=== PATIENT | female | born 1945 | race Caucasian/White ===

== ENCOUNTER 2017-02-16 08:06 | Day surgery (SDC) | payer MEDICARE ==
[~2017-02-16] VITALS: Ht 152.4 cm; Wt 70.0 kg
[~2017-02-16 08:06] MED LIST: 0.9% Sodium Chloride 1,000 ML IV PRN; CALC500C PO; CHOL100045 PO; CIPR-198 PO; CITA10TA14 PO; CITA10TA9 PO; ESTR1VAG VG; FENO54TA PO; IBUP400T22 PO; LOSA50TA37 PO; METR500T19 PO; Sodium Chloride LOK Flush 10 mL Syringe IV PRN; TRAM50TA2 PO; fentaNYL-PF 50 mCg/mL 2 mL Inj IVPUSH PRN
[2017-02-16 08:19] VITALS: BP 124/70; PULSE 71; RESP 16; O2SAT 97
--- NOTE | 2017-02-16 08:57 | PCM.ENDEGD ---
EGD Date of Service: Feb 16, 2017 Physician Jose J Kee MD Pre Procedure Diagnosis: Black stools Post Procedure Dx & Findings: Esophageal erosions and Schatzki's ring duodenal erosion duodenal nodule Procedure Esophagogastroduodenoscopy PROCEDURE IN DETAIL: After proper sedation, Olympus video endoscope was inserted into patient's mouth and esophagus was successfully intubated. Scope introduced esophagus. Esophagus showed normal shiny whitish mucosa consistent with squamous cell component. Z line was at 35 cm from the incisors. Redness swelling noted there was also small erosion. Mild superficial scarring noted consistent with shallow Schatzki's. Biopsies obtained of the erosion esophagitis and a Schatzki 's. These are placed in the same bottle. Scope further advanced to the stomach. Stomach showed normal shiny mucosa with normal appearing rugae folds without any ulcer mass erosion. Cardia fundus body antrum pylorus were all visualized. Retroflexion was done. Stomach was easily inflated and deflatable using air. Scope further events to the distal duodenum. Duodenum revealed small superficial erosion in the duodenal bulb. Biopsy of the erosion obtained. Also in the second portion of the duodenum, there was a 7 mm nodule with center showing some whitish material in the center. Biopsies obtained of the nodule. Impression Shallow Schatzki's ring Esophagitis and esophageal erosion Duodenal erosion Nodule of the duodenum Recommendation Prilosec 20 mg once a day Avoid NSAIDs. Presedation Assessment Risks and Benefits Informed consent was obtained from the patient after all risks and benefits including but not limited to drug reaction, infection, pain, bleeding, perforation, as well as alternatives were discussed. Patient monitoring Continuous pulse oximetry, cardiac monitoring, blood pressure monitoring, IV access, and oxygen at 2L per nasal cannula. Periprocedural Fentanyl: Fentanyl 75mcg Incrementally Midazolam: Midazolam 3mg Incrementally Complications There were no periprocedural complications identified. Post Procedure Plan Post Procedure Recommendations 1. Restrict activities today. 2. Resume normal activities in the morning. 3. Resume medications. 4. GERD behavioral modification: - Avoid fatty, acidic, spicy, large meals - Do not lie down after meals - Do not eat or drink anything for at least 2 1/2 hours before going to bed at night - Discontinue tobacco and alcohol - Decrease or avoid caffeine - Avoid chocolate and mints - Decrease weight - Avoid aspirin and non steroidal anti-inflammatory agents (NSAID) such as Aleve, Advil, Mobic, Naproxen, Ibuprofen, etc 5. Add proton pump inhibitor. Take 30 minutes before 1st meal of the day. 6. Patient informed of normal post procedure side effects as bloating, drowsiness, blood streaking in the stool 7. If gastric biopsy reveal H.pylori, continue with appropriate treatment 8. If small bowel biopsy reveals celiac, continue with appropriate treatment 9. Please don't hesitate to call me with any questions Jose J Kee MD Feb 16, 2017 08:57
[2017-02-16 09:01] VITALS: BP 125/69; PULSE 69; RESP 14; O2SAT 96
[2017-02-16 09:17] VITALS: BP 114/61; PULSE 64; RESP 14; O2SAT 95
--- NOTE | 2017-02-20 14:57 | PATH ---
SURGICAL PATHOLOGY Attending Physician:Jose J Kee M.D. CASE STATUS: Signed Out PATIENT NAME: AUDREY CHAIREZ PID: [id number] : 1945 DATE COLLECTED:02/16/2017 16:16 SPECIMEN: 1: Duodenum, Biopsy 2: Duodenum, Biopsy 3: Esophagus, Biopsy CLINICAL HISTORY: 1). DUODENAL NODULE BIOPSY 2). DUODENAL EROSION BIOPSY 3). DISTAL ESOPHAGUS BIOPSY FINAL DIAGNOSIS: 1.DUODENAL NODULE, BIOPSY: DUODENAL MUCOSA WITH PROMINENT SUBMUCOSAL LYMPHANGIECTASIA. Normal delicate mucosal villi present. Negative for significant inflammation, dysplasia and malignancy. 2.DUODENAL EROSION, BIOPSY: DUODENAL MUCOSA WITH CHRONIC DUODENITIS, FOCAL FOVEOLAR METAPLASIA, BUT WITH NO MORPHOLOGIC EVIDENCE OF MUCOSAL EROSION. Negative for dysplasia and malignancy. Negative for evidence of celiac disease.3.DISTAL ESOPHAGUS, BIOPSY:SQUAMOUS MUCOSA AND GASTRIC CARDIA-TYPE MUCOSA WITH CHRONIC INFLAMMATION AND REACTIVE EPITHELIAL CHANGES. NEGATIVE FOR SPECIALIZED METAPLASIA OF MONTIEL' S-TYPE ESOPHAGUS. Negative for dysplasia and malignancy. Negative for squamous intraepithelial eosinophils. ICD10 R10.9 GROSS DESCRIPTION: Received are three formalin-filled containers, each labeled with the patient' s name. 1. Received in formalin, labeled with the patient' s name and "duodenal nodule BX", is one fragment of gaxiola, soft tissue measuring 0.1 x 0.1 x 0.1 cm. The fragment is totally submitted in cassette 1A. 2. Received in formalin, labeled with the patient' s name and "duodenal erosion", is one fragment of gaxiola, soft tissue measuring 0.2 x 0.1 x 0.1 cm. The fragment is totally submitted in cassette 2A. 3. Received in formalin, labeled with the patient' s name and "distal esophagus", are two fragments of gaxiola, soft tissue ranging in size from 0.1 x 0.1 x 0.1 cm to 0.2 x 0.1 x 0.1 cm. All fragments are totally submitted in cassette 3A. ([id number]) MICRO DESCRIPTION: See diagnosis. ICD-9 CODES: CPT CODES: 1: 67422 2: 40261 3: 24603 Electronically Signed Out Hermann Stiles MD [facility] [address] [place] [id number] Technical component performed at [facility], [address], [place], [address]
== END 2017-02-16 23:59 | disposition home or self-care (01) ==
LOC: END 08:06
PROVIDERS: ATTEND Internal Medicine
DX: K29.80 Duodenitis without bleeding (principal); K22.2 Esophageal obstruction; K20.9 Esophagitis, unspecified; R10.9 Unspecified abdominal pain; Z79.899 Other long term (current) drug therapy; Z88.2 Allergy status to sulfonamides; Z88.5 Allergy status to narcotic agent; Z88.8 Allergy status to other drugs, medicaments and biological substances; Z87.891 Personal history of nicotine dependence
CPT/HCPCS: 43239; G0500; J2250; J3010; J7030